=== PATIENT | female | born 1945 | race Caucasian/White ===

== ENCOUNTER 2017-03-24 09:43 | Outpatient (CLI) | payer MEDICARE, OTHER | END 2017-03-24 09:44 | disposition home or self-care (01) | LOC: BICMAMMO 09:43 | PROVIDERS: ATTEND Internal Medicine Hematology & Oncology | DX: Z08 Encounter for follow-up examination after completed treatment for malignant neoplasm (principal); Z80.3 Family history of malignant neoplasm of breast | CPT/HCPCS: G0204; G0279; 77066 ==

== ENCOUNTER 2017-08-23 12:23 | Day surgery (SDC) | payer MEDICARE, OTHER ==
[2017-08-22 16:34] VITALS: BMI 29.0
[2017-08-23] MEDS ORDERED: Midazolam HCl 2 mg/2 ml Vial ONE ×2 (13:48→14:20)
[2017-08-23] MEDS ORDERED: Fentanyl 100 MCG/2 ML VIAL ONE (14:20)
--- NOTE | 2017-08-23 15:47 | MRI ---
LUMBAR SPINE MRI WITHOUT CONTRAST 08/23/17 COMPARISON: 07/20/10. HISTORY: Bilateral leg pain and back pain for a "long time." TECHNIQUE: Multiplanar and multisequence MR imaging of the lumbar spine is provided without contrast. FINDINGS: The sagittal STIR imaging demonstrates no focal area of suspicious osseous marrow edema. There is mil d edematous degenerative end plate change laterally on the right at the L4-5 level. There is a new but chronic superior end plate fracture/prompt Schmorl's node at L3 vertebral body wi th no loss of vertebral body height. No anterolisthesis or retrolisthesis is noted within the lumbar spine. T12-L1: Mild disc space narrowing. No central canal or neural foraminal stenosis. L1-2: There is disc desiccation and minimal disc bulge. Mild bilateral facet hypertrophy. No signific ant central canal or neural foraminal stenosis. L2-3: Disc space narrowing, disc desiccation, and mild disc bulge. Bilateral facet hypertrophy. No si gnificant central canal or neural foraminal stenosis. L3-4: There is disc space narrowing and disc desiccation with disc bulge. There is a foraminal disc p rotrusion on the left. There is bilateral facet hypertrophy and hypertrophy of ligamentum flavum. The re is mild central canal stenosis with a mild degree of left lateral recess stenosis and left neural foraminal stenosis. L4-5: Disc space narrowing, disc desiccation and mild disc bulge present. Bilateral facet hypertrophy . Small disc protrusion and osteophyte in the foraminal region on the right. Mild bilateral neural fo raminal stenosis. Mild central canal stenosis. L5-S1: Disc space narrowing, disc desiccation and mild disc bulge. Bilateral facet hypertrophy presen t with moderate left neural foraminal stenosis. No significant right neural foraminal stenosis. Mild central canal stenosis. The imaged retroperitoneal structures appear grossly unremarkable. IMPRESSION: Multilevel degenerative change noted within the lumbar spine as described above. POS: AURY
== END 2017-08-23 16:10 | disposition home or self-care (01) ==
LOC: SDC/OP 12:23
PROVIDERS: ATTEND Anesthesiology Pain Medicine
DX: M48.062 Spinal stenosis, lumbar region with neurogenic claudication (principal); G43.909 Migraine, unspecified, not intractable, without status migrainosus; M51.27 Other intervertebral disc displacement, lumbosacral region; M51.26 Other intervertebral disc displacement, lumbar region; F41.9 Anxiety disorder, unspecified; F32.9 Major depressive disorder, single episode, unspecified; Z87.891 Personal history of nicotine dependence; Z79.52 Long term (current) use of systemic steroids; Z79.899 Other long term (current) drug therapy
CPT/HCPCS: 72148; J2250; J3010

== ENCOUNTER 2017-11-01 08:18 | Outpatient (CLI) | payer MEDICARE, OTHER ==
[2017-11-01 09:45] LABS: Hemoglobin 14.5 g/dL (12.0-16.0); Mean Corpuscular HGB CONC 34.1 g/dL (32.0-36.0); Mean Corpuscular Hemoglobin 32.2 pg (27.0-31.0); Mean Corpuscular Volume 94.7 fL (78.0-98.0); Mean Platelet Volume 7.6 fL (7.4-10.4); Platelet Count 179 thou/uL (130-400); RBC Distribution Width 11.1 % (11.5-14.5); Red Blood Cell (RBC) Count 4.51 mill/uL (4.20-5.40); White Blood Cell (WBC) Count 4.4 thou/uL (4.8-10.8)
[2017-11-01 09:59] LABS: PTT 24.4 SEC (22.9-36.1); Prothrombin Time 13.2 SEC (12.0-14.7)
[2017-11-01 10:09] LABS: Anion Gap 13 mmol/L (10-20); BUN (Urea Nitrogen) 13 mg/dL (9.8-20.1); Calc. Creatinine Clearance 0 mL/min (70-130); Carbon Dioxide 29 mmol/L (23-31); Chloride 103 mmol/L (98-107); Estimated GFR-MDRD 76; Glucose 100 mg/dL (83-110); Sodium 141 mmol/L (136-145)
--- NOTE | 2017-11-03 16:40 | EKG ---
Test Reason : Blood Pressure : / mmHG Vent. Rate : 062 BPM Atrial Rate : 062 BPM P-R Int : 158 ms QRS Dur : 082 ms QT Int : 386 ms P-R-T Axes : -09 058 062 degrees QTc Int : 391 ms Normal sinus rhythm Normal ECG Confirmed by ISSAC JASON ([id number]) on 11/03/2017 4:40:04 PM Referred By: SOLIS Confirmed By:ISSAC JASON
== END 2017-11-01 08:19 | disposition home or self-care (01) ==
LOC: LABBT 08:18
PROVIDERS: ATTEND Surgery
DX: Z01.818 Encounter for other preprocedural examination (principal); M48.061 Spinal stenosis, lumbar region without neurogenic claudication; M54.16 Radiculopathy, lumbar region
CPT/HCPCS: 80048; 85027; 85610; 85730; 93005; 93010

== ENCOUNTER 2017-11-08 10:24 | Day surgery (SDC) | payer MEDICARE, OTHER ==
[2017-11-08] MEDS ORDERED: CEFAZOLIN/Water 2 GM/20 ML SYRINGE ONE (12:10)
[2017-11-08] MEDS ORDERED: Midazolam HCl 2 mg/2 ml Vial ONE (12:10)
[2017-11-08] MEDS ORDERED: Thrombin 5000 UNITS/5 ML VIAL ONE (12:44)
[2017-11-08] MEDS ORDERED: Bacitracin Zinc Ointment 30 gm TUBE ONE (12:45)
[2017-11-08] MEDS ORDERED: Sodium Chloride 0.9% 10 ML ONE (12:45)
[2017-11-08] MEDS ORDERED: Fentanyl 100 MCG/2 ML VIAL ONE ×4 (13:06→16:50)
[2017-11-08] MEDS ORDERED: Ondansetron HCl/PF 4 MG/2 ML Vial ONE (13:15)
[2017-11-08] MEDS ORDERED: Metoclopramide HCl 10 MG/2 ML VIAL ONE (13:15)
[2017-11-08] MEDS ORDERED: Dexamethasone 20 MG/5 ML VIAL ONE (13:15)
[2017-11-08] MEDS ORDERED: Lidocaine 1% PF 5 ML VIAL ONE (13:15)
[2017-11-08] MEDS ORDERED: Glycopyrrolate 0.2 MG/ML 5 ML SYRINGE ONE (13:15)
[2017-11-08] MEDS ORDERED: Vecuronium 10 MG VIAL ONE (13:15)
[2017-11-08] MEDS ORDERED: PROPOFOL 200 MG/20 ML VIAL ONE (13:15)
[2017-11-08] MEDS ORDERED: HYDROmorphone 2 MG/ML VIAL SLOW IVP PRN (15:59)
[2017-11-08] MEDS ORDERED: Meperidine HCl/PF 25 MG/ML VIAL SLOW IVP PRN (15:59)
[2017-11-08] MEDS ORDERED: Promethazine HCl 25 MG/ML VIAL IM PRN ×2 (15:59→16:03)
[2017-11-08] MEDS ORDERED: Promethazine HCl 25 MG/ML VIAL SLOW IVP PRN (15:59)
[2017-11-08] MEDS ORDERED: Ondansetron HCl/PF 4 MG/2 ML Vial IVP PRN (15:59)
[2017-11-08] MEDS ORDERED: Morphine Sulfate 2 MG/ML SYRINGE SLOW IVP PRN (15:59)
[2017-11-08] MEDS ORDERED: Acetaminophen 325 MG TAB PO PRN (16:03)
[2017-11-08] MEDS ORDERED: Fleet Enema 133 ML BOT PR PRN (16:03)
[2017-11-08] MEDS ORDERED: Bisacodyl 10 MG SUPP PR PRN (16:03)
[2017-11-08] MEDS ORDERED: Milk Of Magnesia 30 ML UDCUP PO PRN (16:03)
[2017-11-08] MEDS ORDERED: Mag-Al 1200 mg/1200 mg/30 ML UDCUP PO PRN (16:03)
[2017-11-08] MEDS ORDERED: traMADol HCl 50 MG TAB PO PRN (16:03)
[2017-11-08] MEDS ORDERED: HYDROcodone/Acetaminophen 7.5/325 mg Tablet PO PRN (16:03)
[2017-11-08] MEDS ORDERED: Furosemide 20 MG TAB PO PRN (16:06)
[2017-11-08] MEDS ORDERED: HYDROmorphone 2 MG/ML VIAL ONE (16:42)
[2017-11-08 20:04] VITALS: BMI 30.9
[2017-11-08] MEDS: Gabapentin 300 MG CAP PO SCH (20:31)
[2017-11-08] MEDS: Acetaminophen/Codeine 30-300mg Tablet PO PRN (21:28)
[2017-11-08] MEDS: CEFAZOLIN/Water 2 GM/20 ML SYRINGE SLOW IVP SCH (21:28)
--- NOTE | 2017-11-08 22:18 | OP ---
CHIEF COMPLAINT: Low back and leg pain with lumbar stenosis and disk extrusion. POSTPROCEDURE DIAGNOSES: Low back and leg pain with lumbar stenosis and disk extrusion. SURGEON: Torres Blair MD MERCHANDISE DELIVERER: Ludin Hand PA-C PROCEDURES: 1. L3-L4, L4-L5, L5-S1 laminectomies, partial facetectomies, foraminotomies. 2. Right L4-L5 diskectomy. 3. Use of operative microscope for microdissection. DESCRIPTION OF PROCEDURE: After informed consent was obtained from the patient, the patient was brou ght to OR 12. Proper patient pause and identification were carried out. The wound was then opened w ith a combination of sharp, monopolar and blunt dissection following a linear jocelynn being made and marcos rile cleansing, preparation and draping. The L3, L4, L5, S1 dorsal spines lamina were exposed. We t hen performed localization film, which confirmed our area of interest. We performed L3, L4, L5, S1 l aminectomies, partial facetectomies, and foraminotomies over the L3, L4, L5, S1 nerve roots and worki ng over the shoulder of the right L5 nerve root at the L4-L5 segment with use of operative microscope for microdissection. We performed a right L4-L5 diskectomy in excellent decompression of the L5 ner ve root. Copious irrigation occurred throughout as did maximizing hemostasis. The wound was then cl osed in anatomic layers following the sprinkling of vancomycin powder and copious irrigation of the p atient and then emerged from anesthesia.
[2017-11-09] MEDS: Acetaminophen/Codeine 30-300mg Tablet PO PRN ×7 (01:20→23:05)
[2017-11-09] MEDS: CEFAZOLIN/Water 2 GM/20 ML SYRINGE SLOW IVP SCH (03:31)
[2017-11-09] MEDS: Gabapentin 300 MG CAP PO SCH ×3 (08:03→21:06)
[2017-11-09] MEDS: Calcium Carbonate + Vit D 1 TAB PO SCH (08:03)
[2017-11-09] MEDS: tiZANidine HCl 4 MG TAB PO PRN ×3 (09:46→23:05)
--- NOTE | 2017-11-09 09:55 | PRG ---
DATE OF SERVICE: 11/09/2017 Ms. Hart is postoperative day 1 from L3-S1 laminectomy with right L4-L5 diskectomy, low back pa in in the incisional region is the main issue. We will work on mobilization today. Neurologically, she is doing well.
[2017-11-10] MEDS: tiZANidine HCl 4 MG TAB PO PRN ×3 (04:52→20:19)
[2017-11-10] MEDS: Acetaminophen/Codeine 30-300mg Tablet PO PRN ×4 (04:52→20:20)
[2017-11-10] MEDS: Gabapentin 300 MG CAP PO SCH ×3 (08:43→20:19)
[2017-11-10] MEDS: Calcium Carbonate + Vit D 1 TAB PO SCH (08:43)
[2017-11-10] MEDS: Anastrozole 1 MG TAB PO SCH (08:44)
[2017-11-10] MEDS ORDERED: Anastrozole 1 MG TAB PO SCH (09:00)
[2017-11-10] MEDS: Ibuprofen 200 MG TAB PO PRN ×2 (11:35→16:46)
--- NOTE | 2017-11-10 15:17 | PRG ---
DATE OF SERVICE: 11/10/2017 Ludin Hand PA-C dictating for Dr. Torres Blair. SUBJECTIVE: Ms. Hart is postoperative day number 2, having undergone lumbar laminectomy and di skectomy. She continues to have significant incisional back pain and burning and some right greater than left lower extremity symptoms similar to what she had before surgery. Her does state th at she appears to be walking with a little bit more energy and more steady on her feet, can walk furt her, but is experiencing cramps into the bilateral calves. She continues to have good strength in th e bilateral lower extremities. Right now, we will work on pain control and I have added ibuprofen to her regimen. Physical therapy has possibly suggested inpatient rehab and I have ordered this, altho ugh the patient may be doing well and may be ready for discharge as early as tomorrow. We will howard carmelo to follow her, but again is ready for discharge whether she decides to go home or to inpatient re habilitation.
[2017-11-11] MEDS: Acetaminophen/Codeine 30-300mg Tablet PO PRN ×2 (01:09→03:58)
[2017-11-11] MEDS: tiZANidine HCl 4 MG TAB PO PRN ×3 (02:23→15:12)
[2017-11-11 08:13] VITALS: BP 118/70; TEMP 98.3
[2017-11-11] MEDS: Ibuprofen 200 MG TAB PO PRN ×2 (08:20→13:01)
[2017-11-11] MEDS: Anastrozole 1 MG TAB PO SCH (08:20)
[2017-11-11] MEDS: Gabapentin 300 MG CAP PO SCH ×2 (08:21→15:12)
[2017-11-11] MEDS: Calcium Carbonate + Vit D 1 TAB PO SCH (08:21)
--- NOTE | 2017-11-11 13:15 | PRG ---
DATE OF SERVICE: 11/11/2017 I saw Ms. Berta Hart in her hospital bed this morning. She is resting comfortably. She had laminectomy, diskectomy on Tuesday and has been slow to ambulate; however, she is doing well, able to get up and move around. However, she lives alone it would be better if she was to go to a rehab facility. Over the night, she did not have any fevers. Her sats were normal. She is statting 99% on room air, blood pressure was 118 and overall she is doing well. She has no new neurological symptoms. Patient is ready to discharge once she gets a placement at a rehabilitation facility. MERI
--- NOTE | 2017-11-14 10:01 | DIS ---
DATE OF ADMISSION: 11/08/2017 DATE OF DISCHARGE: 11/11/2017 DISCHARGE DIAGNOSES: 1. Lumbar spinal stenosis. 2. Lumbar herniated nucleus pulposus. 3. Lumbar radiculopathy. HOSPITAL COURSE: Ms. Hart was admitted to undergo L3-S1 laminectomies, partial facetectomy, an d foraminotomies with right L4-L5 diskectomy. The patient's surgery was without complication and she required a few overnight stays to help with pain control postoperatively. Eventually, patient met emil strange for discharge, appropriate outpatient followup appointments, the patient's education was prov ided. At the time of discharge, the patient was doing well with significant improvement in her leg p ain, but postoperative incisional back pain. The patient understands to call the office with questio ns or concerns prior to next followup appointment.
== END 2017-11-11 16:59 ==
LOC: SDC 10:24 → T4-B 17:45 → SDC 11-11 16:59
PROVIDERS: ATTEND Surgery
PROC: 01NB0ZZ Release Lumbar Nerve, Open Approach (ICD-10-PCS; principal; 2017-11-08)
DX: M48.061 Spinal stenosis, lumbar region without neurogenic claudication (principal); M51.26 Other intervertebral disc displacement, lumbar region; Z88.8 Allergy status to other drugs, medicaments and biological substances; Z79.811 Long term (current) use of aromatase inhibitors; Z79.899 Other long term (current) drug therapy
CPT/HCPCS: 63047; 63048 ×3; 76001; 96374; 97110; 97116 ×3; 97139 ×3; 97530 ×3; G8978; G8979; G8987; G8988; 96375; 96376; A4216; J0131; J1100; J1170; J2001; J2250; J2270; J2405; J2704; J2765; J3010; J3370; J3490

== ENCOUNTER 2018-03-27 15:18 | Outpatient (CLI) | payer MEDICARE, OTHER | END 2018-03-27 15:19 | disposition home or self-care (01) | LOC: BICMAMMO 15:18 | PROVIDERS: ATTEND Internal Medicine Hematology & Oncology | DX: Z08 Encounter for follow-up examination after completed treatment for malignant neoplasm (principal); Z85.3 Personal history of malignant neoplasm of breast; Z80.3 Family history of malignant neoplasm of breast | CPT/HCPCS: 77066; G0279 ==

== ENCOUNTER 2018-05-09 07:58 | Outpatient (CLI) | payer MEDICARE, OTHER ==
--- NOTE | 2018-05-09 09:14 | BD ---
BONE DENSITOMETRY USING DEXA: HISTORY: Postmenopausal screening for osteoporosis. FINDINGS: Lumbar Spine: BMD (g/cm2) L1 0.948 T-Score: -0.4 Z-Score: 1.7 L2 0.995 T-Score: -0.3 Z-Score: 2.0 L3 1.083 T-Score: 0.0 Z-Score: 2.5 L4 0.999 T-Score: -0.6 Z-Score: 2.0 L1-L4 1.008 T-Score: -0.4 Z-Score: 2.0 Femoral Neck: 0.765 T-Score: -0.8 Z-Score: 1.3 Total Femur: 1.006 T-Score: 0.5 Z-Score: 2.3 Impression: Normal bone mineral density. No evidence of osteopenia/osteoporosis. POS: C
== END 2018-05-09 07:59 | disposition home or self-care (01) ==
LOC: BICMAMMO 07:58
PROVIDERS: ATTEND Internal Medicine Hematology & Oncology
DX: M85.89 Other specified disorders of bone density and structure, multiple sites (principal); C50.919 Malignant neoplasm of unspecified site of unspecified female breast
CPT/HCPCS: 77080

== ENCOUNTER 2019-03-28 08:01 | Outpatient (CLI) | payer MEDICARE, OTHER ==
--- NOTE | 2019-03-28 08:39 | MMO ---
Bilateral MAMMO Bilat Diag [facility]. CLINICAL HISTORY: Patient is 73 years old and is seen for diagnostic exam. The patient has the following family history of breast cancer: mother, malignant (generic). The patient has a history of malignant (generic) in the left breast in April,. The patient has a history of left needle biopsy in April, - malignant and left Lumpectomy in 2013 - malignant. VIEWS: The views performed were: bilateral craniocaudal with tomosynthesis; bilateral mediolateral oblique with tomosynthesis; and bilateral mediolateral with tomosynthesis. FILMS COMPARED: The present examination has been compared to prior imaging studies performed at [facility] on 03/24/2017 and 03/27/2018, and at [facility] on 03/12/2015 and 03/17/2016. This study has been interpreted with the assistance of computer-aided detection. MAMMOGRAM FINDINGS: There are scattered fibroglandular densities. Finding 1: There are stable benign appearing calcifications seen in both breasts. Finding 2: There are stable post operative changes seen in the left breast. There are no suspicious masses, suspicious calcifications, or new areas of architectural distortion. IMPRESSION: THERE IS NO MAMMOGRAPHIC EVIDENCE OF MALIGNANCY. A ROUTINE FOLLOW-UP MAMMOGRAM IN 1 YEAR IS RECOMMENDED. THE RESULTS OF THIS EXAM WERE SENT TO THE PATIENT. ACR BI-RADS Category 2 - Benign finding MAMMOGRAPHY NOTE: 1. A negative mammogram report should not delay a biopsy if a dominant of clinically suspicious mass is present. 2. Approximately 10% to 15% of breast cancers are not detected by mammography. 3. Adenosis and dense breasts may obscure an underlying neoplasm. Reported by: MADDI SANFORD MD Electonically Signed: [id number]
== END 2019-03-28 08:02 | disposition home or self-care (01) ==
LOC: BICMAMMO 08:01
PROVIDERS: ATTEND Internal Medicine Hematology & Oncology
DX: Z08 Encounter for follow-up examination after completed treatment for malignant neoplasm (principal); Z85.3 Personal history of malignant neoplasm of breast
CPT/HCPCS: 77066; G0279

== ENCOUNTER 2020-05-12 08:19 | Outpatient (CLI) | payer MEDICARE, OTHER | END 2020-05-12 08:20 | disposition home or self-care (01) | LOC: BICMAMMO 08:19 | PROVIDERS: ATTEND Internal Medicine Hematology & Oncology | DX: Z12.31 Encounter for screening mammogram for malignant neoplasm of breast (principal); Z13.820 Encounter for screening for osteoporosis; Z78.0 Asymptomatic menopausal state; Z80.3 Family history of malignant neoplasm of breast; Z85.3 Personal history of malignant neoplasm of breast; Z98.890 Other specified postprocedural states | CPT/HCPCS: 77063; 77067; 77080 ==

== ENCOUNTER 2022-06-15 08:00 | Outpatient (CLI) | payer MEDICARE, OTHER | END 2022-06-15 08:01 | disposition home or self-care (01) | LOC: BICMAMMO 08:00 | PROVIDERS: ATTEND Internal Medicine Hematology & Oncology | DX: Z12.31 Encounter for screening mammogram for malignant neoplasm of breast (principal); Z80.3 Family history of malignant neoplasm of breast; Z98.890 Other specified postprocedural states | CPT/HCPCS: 77063; 77067; 77080 ==